=== PATIENT | female | born 1995 | race Caucasian/White ===

== ENCOUNTER 2021-06-29 19:04 | Emergency (ER) | payer OTHER ==
[2021-06-29 19:45] LABS: Bilirubin Neg (Negative); Blood, Urine Negative (Negative); Clarity Clear (Clear); Glucose, Urine (Dipstick) Normal (Negative); Ketone, Urine 5 mg/dL (Negative); Leukocyte Negative (Negative); Nitrite Negative (Negative); Protein, Urine (Dipstick) Negative (Neg-Trace); Urobilinogen Normal mg/dL (Less than 2)
[2021-06-29 20:07] LABS: #Eosinphils 0.2 10x3/uL (0.0-0.5); #Monocytes 0.5 10x3/uL (0.0-1.1); #Neutrophils 6.8 10x3/uL (1.5-8.4); %Basophils 0.1 % (0.0-2.0); %Eosinophils 1.9 % (0.0-6.0); %Lymphocytes 10.5 % (18.0-47.0); %Monocytes 5.5 % (0.0-10.0); %Neutrophils 81.8 % (40.0-75.0); Hemoglobin 11.3 g/dL (12.0-15.5); Mean Corpuscular HGB CONC 34.7 g/dL (32.0-36.0); Mean Corpuscular Volume 89.6 fl (81.6-98.3); Mean Platelet Volume 10.4 fl (7.4-10.4); Platelet Count 256 10x3/uL (150-450); RBC Distribution Width 13.8 % (11.5-14.5); Red Blood Cell (RBC) Count 3.64 10x6/uL (3.90-5.03); White Blood Cell (WBC) Count 8.4 10x3/uL (3.5-10.5)
[2021-06-29] MEDS ORDERED: Metoclopramide HCl 10 MG/2 ML VIAL ONE (20:07)
[2021-06-29] MEDS ORDERED: diphenhydrAMINE 50 MG/ML VIAL ONE (20:11)
[2021-06-29 20:16] LABS: ALT (SGPT) 10 U/L (8-55); AST (SGOT) 12 U/L (5-34); Albumin 3.8 g/dL (3.5-5.0); Alkaline Phosphatase 54 U/L (40-110); Anion Gap 14 mmol/L (10-20); BUN (Urea Nitrogen) 5 mg/dL (7.0-18.7); Bilirubin, Total 0.3 mg/dL (0.2-1.2); Calc. Creatinine Clearance 0 mL/min (70-130); Calcium 8.7 mg/dL (7.8-10.44); Carbon Dioxide 19 mmol/L (22-29); Chloride 110 mmol/L (98-107); Globulin 2.8 g/dL (2.4-3.5); Glucose 78 mg/dL (70-105); Lipase 24 U/L (8-78); Potassium 3.7 mmol/L (3.5-5.1); Protein, Total 6.6 g/dL (6.0-8.3); Sodium 139 mmol/L (136-145)
== END 2021-06-29 21:35 | disposition home or self-care (01) ==
LOC: CSHERS 19:04
DX: O21.8 Other vomiting complicating pregnancy (principal); O99.012 Anemia complicating pregnancy, second trimester; O26.892 Other specified pregnancy related conditions, second trimester; R10.30 Lower abdominal pain, unspecified; O99.512 Diseases of the respiratory system complicating pregnancy, second trimester; J45.909 Unspecified asthma, uncomplicated; Z3A.18 18 weeks gestation of pregnancy; O21.9 Vomiting of pregnancy, unspecified
CPT/HCPCS: 76815; 80053; 81003; 83690; 85025; 86900; 86901; 96365; 96375; J1200; J2765

== ENCOUNTER 2021-11-12 07:28 | Inpatient (IN) | payer OTHER ==
[2021-11-12] MEDS ORDERED: Ondansetron PF 4 MG/2 ML Vial IVP PRN ×3 (07:42→15:12)
[2021-11-12] MEDS ORDERED: Docusate 100 MG CAP PO PRN (07:42)
[2021-11-12] MEDS ORDERED: Bicitra 30 ML UDCUP PO PRN (07:42)
[2021-11-12] MEDS ORDERED: Famotidine/PF 20 mg/2ml Vial SLOW IVP PRN (07:42)
[2021-11-12] MEDS ORDERED: hydrALAZINE 20 MG/ML VIAL SLOW IVP PRN ×2 (07:42→15:12)
[2021-11-12] MEDS ORDERED: Promethazine HCl 25 MG/ML VIAL IM PRN ×3 (07:42→15:12)
[2021-11-12] MEDS ORDERED: Lactated Ringer's 1,000 ML IV SCH (07:45)
[2021-11-12 08:15] LABS: Hemoglobin 11.3 g/dL (12.0-15.5); Mean Corpuscular Hemoglobin 30.1 pg (27.0-33.0); Mean Corpuscular Volume 88.3 fl (81.6-98.3); Mean Platelet Volume 10.9 fl (7.4-10.4); Platelet Count 250 10x3/uL (150-450); RBC Distribution Width 13.9 % (11.5-14.5); Red Blood Cell (RBC) Count 3.76 10x6/uL (3.90-5.03); White Blood Cell (WBC) Count 6.7 10x3/uL (3.5-10.5)
[2021-11-12 08:36] VITALS: BMI 30.7
[2021-11-12] MEDS ORDERED: CEFAZOLIN 2 GM in Sodium Chloride 0.9% 100 ML IVPB SCH (08:45)
[2021-11-12 08:47] LABS: Syphilis Antibody Nonreactive (Nonreactive); Syphilis Antibody Index 0.05 S/CO (<1.00 Non-Reactive)
[2021-11-12] MEDS ORDERED: Methylergonovine 0.2 MG/ML VIAL IM PRN ×2 (08:59→15:12)
[2021-11-12] MEDS ORDERED: Misoprostol 200 MCG TAB PR PRN ×2 (08:59→15:12)
[2021-11-12] MEDS ORDERED: NS w/ Oxytocin 30 units 500 ML IV SCH ×2 (09:00→15:12)
[2021-11-12 09:02] LABS: Hep B Surf Ag Non-Reactive S/CO (NonReactive)
[2021-11-12 09:04] LABS: HBSAg Index 0.28 S/CO (0-0.99)
[2021-11-12 09:23] LABS: HIV (1/2) Antibody/Antigen Non-Reactive (NonReactive)
[2021-11-12] MEDS ORDERED: Dexamethasone 4 mg/ml Vial ONE (09:28)
[2021-11-12] MEDS ORDERED: Ondansetron PF 4 MG/2 ML Vial ONE (09:28)
[2021-11-12] MEDS ORDERED: Phenylephrine 40 MG/NS 250 ML 250 ML ONE (09:28)
[2021-11-12] MEDS ORDERED: Metoclopramide HCl 10 MG/2 ML VIAL ONE (09:28)
[2021-11-12] MEDS ORDERED: Ketorolac Tromethamine 30 MG/ML VIAL ONE (09:28)
[2021-11-12] MEDS ORDERED: Oxytocin 10 UNITS/ML VIAL ONE (09:28)
[2021-11-12] MEDS ORDERED: Fentanyl 100 MCG/2 ML VIAL ONE (09:32)
[2021-11-12] MEDS ORDERED: Morphine PF 10 MG/10 ML VIAL ONE (09:32)
[2021-11-12] MEDS ORDERED: ePHEDrine Sulfate 50 MG/10 ML VIAL ONE (10:13)
[2021-11-12] MEDS ORDERED: Glycopyrrolate 0.2 MG/ML 5 ML SYRINGE ONE (10:14)
[2021-11-12 10:17] LABS: SARS-CoV-2 NAA Rapid Test Not Detected (NotDetected)
[2021-11-12] MEDS ORDERED: Albuterol Sulfate HFA (OR ONLY) ONE (10:30)
[2021-11-12] MEDS ORDERED: Moisturizing Cream (Eucerin) 113 GM JAR TOP PRN (11:59)
[2021-11-12] MEDS ORDERED: diphenhydrAMINE 50 MG/ML VIAL IVP PRN (11:59)
[2021-11-12] MEDS ORDERED: Ondansetron HCl/PF 4 MG/2 ML Vial IVP PRN (11:59)
[2021-11-12] MEDS ORDERED: Promethazine HCl 25 MG SUPP PR PRN (11:59)
[2021-11-12] MEDS ORDERED: Naloxone HCl 0.4 mg/ml Vial IVP PRN ×2 (11:59)
[2021-11-12] MEDS ORDERED: Meperidine HCl/PF 25 MG/ML VIAL SLOW IVP PRN (11:59)
[2021-11-12] MEDS ORDERED: Fentanyl 100 MCG/2 ML VIAL SLOW IVP PRN (11:59)
[2021-11-12] MEDS ORDERED: Naloxone HCl 0.4 mg/ml Vial IV PRN (11:59)
[2021-11-12] MEDS ORDERED: Communication Order-Pharmacy FS SCH (12:00)
[2021-11-12] MEDS ORDERED: Simethicone Chewable 80 MG TAB PO PRN (15:12)
[2021-11-12] MEDS ORDERED: diphenhydrAMINE 25 MG CAP PO PRN (15:12)
[2021-11-12] MEDS ORDERED: Boostrix 0.5 ML (Tdap) VIAL IM ONE (15:12)
[2021-11-12] MEDS ORDERED: Acetaminophen 325 MG TAB PO PRN (15:12)
[2021-11-12] MEDS ORDERED: Bisacodyl 10 MG SUPP PR PRN (15:12)
[2021-11-12] MEDS: Lactated Ringer's 1,000 ML IV SCH (16:35)
[2021-11-12] MEDS ORDERED: Ketorolac Tromethamine 30 MG/ML VIAL IVP PRN (17:30)
[2021-11-13] MEDS: Docusate 100 MG CAP PO SCH ×3 (01:41→21:22)
[2021-11-13] MEDS: Ferrous Sulfate 325 MG TAB PO SCH ×3 (01:41→21:22)
[2021-11-13] MEDS: Lactated Ringer's 1,000 ML IV SCH ×3 (01:42→15:24)
[2021-11-13 04:48] LABS: Mean Corpuscular HGB CONC 33.2 g/dL (32.0-36.0); Mean Corpuscular Hemoglobin 29.9 pg (27.0-33.0); Mean Corpuscular Volume 89.9 fl (81.6-98.3); Platelet Count 212 10x3/uL (150-450); Red Blood Cell (RBC) Count 2.68 10x6/uL (3.90-5.03); White Blood Cell (WBC) Count 8.2 10x3/uL (3.5-10.5)
[2021-11-13] MEDS: Prenatal Vitamin 1 TAB PO SCH (08:52)
[2021-11-13] MEDS ORDERED: Ibuprofen 800 MG TAB PO SCH (14:00)
[2021-11-13] MEDS: Ibuprofen 800 MG TAB PO SCH ×2 (15:26→21:22)
[2021-11-13] MEDS: HYDROcodone/Acetaminophen 5/325 mg Tablet PO PRN ×2 (16:20→21:22)
[2021-11-14] MEDS: Lactated Ringer's 1,000 ML IV SCH ×2 (01:20→08:24)
[2021-11-14 04:51] LABS: Hemoglobin 7.9 g/dL (12.0-15.5); Mean Corpuscular HGB CONC 32.6 g/dL (32.0-36.0); Mean Corpuscular Hemoglobin 29.6 pg (27.0-33.0); Mean Corpuscular Volume 90.6 fl (81.6-98.3); Mean Platelet Volume 10.7 fl (7.4-10.4); Platelet Count 224 10x3/uL (150-450); RBC Distribution Width 14.3 % (11.5-14.5); Red Blood Cell (RBC) Count 2.67 10x6/uL (3.90-5.03); White Blood Cell (WBC) Count 8.1 10x3/uL (3.5-10.5)
[2021-11-14] MEDS: HYDROcodone/Acetaminophen 5/325 mg Tablet PO PRN (06:01)
[2021-11-14] MEDS: Ibuprofen 800 MG TAB PO SCH (06:01)
[2021-11-14 08:24] VITALS: BP 95/59; TEMP 97.9
[2021-11-14] MEDS: Ferrous Sulfate 325 MG TAB PO SCH (09:12)
[2021-11-14] MEDS: Docusate 100 MG CAP PO SCH (09:12)
[2021-11-14] MEDS: Prenatal Vitamin 1 TAB PO SCH (09:12)
== END 2021-11-14 12:25 | disposition home or self-care (01) | DRG 787 ==
LOC: CSHLD 07:28 → CSHPP 15:11
PROVIDERS: ADMIT Obstetrics & Gynecology; ATTEND Obstetrics & Gynecology
PROC: 10D00Z1 Extraction of Products of Conception, Low, Open Approach (ICD-10-PCS; principal; 2021-11-12)
DX: O34.211 Maternal care for low transverse scar from previous cesarean delivery (principal); O72.2 Delayed and secondary postpartum hemorrhage; D62 Acute posthemorrhagic anemia; Z20.822 Contact with and (suspected) exposure to COVID-19; Z37.0 Single live birth; Z3A.37 37 weeks gestation of pregnancy; F41.9 Anxiety disorder, unspecified; F31.9 Bipolar disorder, unspecified; J45.909 Unspecified asthma, uncomplicated; O99.344 Other mental disorders complicating childbirth; O99.52 Diseases of the respiratory system complicating childbirth; F79 Unspecified intellectual disabilities; Z79.899 Other long term (current) drug therapy; N73.6 Female pelvic peritoneal adhesions (postinfective); O99.892 Other specified diseases and conditions complicating childbirth; O90.81 Anemia of the puerperium
CPT/HCPCS: 36415; 51702; 85027; 86780; 86850; 86900; 86901; 87340; 87389; J1100; J1885; J2274; J2310; J2405; J2590; J2765; J3010; J7120; U0002

== ENCOUNTER 2023-12-11 09:21 | Inpatient (IN) | payer OTHER ==
[2023-12-08 13:50] LABS: Hematocrit 30.8 % (34.9-44.5); Hemoglobin 10.6 g/dL (12.0-15.5)
[2023-12-08 14:22] LABS: Syphilis Antibody Nonreactive (Nonreactive); Syphilis Antibody Index 0.03 S/CO (<1.00 Non-Reactive)
[2023-12-08 14:23] LABS: HBsAg Index 0.19 S/CO (0-0.99); Hep B Surf Ag Non-Reactive S/CO (NonReactive)
[2023-12-08 15:17] LABS: Platelet Count 216 10x3/uL (150-450)
[2023-12-11 09:41] VITALS: BMI 39.6
[2023-12-11] MEDS ORDERED: Ondansetron PF 4 MG/2 ML Vial IVP PRN ×3 (10:39→10:42)
[2023-12-11] MEDS ORDERED: Oxytocin 30 units/NS 500 ML 500 ML IV SCH (10:39)
[2023-12-11] MEDS ORDERED: hydrALAZINE 20 MG/ML VIAL SLOW IVP PRN ×2 (10:39→17:37)
[2023-12-11] MEDS ORDERED: Lactated Ringer's 1,000 ML IV SCH (10:39)
[2023-12-11] MEDS ORDERED: Famotidine/PF 20 mg/2ml Vial SLOW IVP PRN (10:39)
[2023-12-11] MEDS ORDERED: Bicitra 30 ML UDCUP PO PRN (10:39)
[2023-12-11] MEDS ORDERED: CEFAZOLIN 2 GM in Sodium Chloride 0.9% 100 ML IVPB SCH (10:39)
[2023-12-11] MEDS ORDERED: Promethazine HCl 25 MG/ML VIAL IM PRN ×2 (10:39→10:42)
[2023-12-11] MEDS ORDERED: Naloxone HCl 0.4 mg/ml Vial IVP PRN ×2 (10:42)
[2023-12-11] MEDS ORDERED: Meperidine HCl/PF 25 MG (1 mL) VIAL SLOW IVP PRN (10:42)
[2023-12-11] MEDS ORDERED: fentaNYL 50 mcg/mL 1 mL Vial SLOW IVP PRN (10:42)
[2023-12-11] MEDS ORDERED: Moisturizing Cream (Eucerin) 113 GM JAR TOP PRN (10:42)
[2023-12-11] MEDS ORDERED: Naloxone HCl 0.4 mg/ml Vial IV PRN (10:42)
[2023-12-11] MEDS ORDERED: HYDROmorphone 0.5 MG/0.5 ML SYRINGE SLOW IVP PRN (10:42)
[2023-12-11] MEDS ORDERED: Ketorolac Tromethamine 30 MG (1 mL) VIAL IVP PRN (10:42)
[2023-12-11] MEDS ORDERED: diphenhydrAMINE 50 MG/ML VIAL IVP PRN (10:42)
[2023-12-11] MEDS ORDERED: Communication Order-Pharmacy FS SCH (10:45)
[2023-12-11] MEDS ORDERED: Ketorolac Tromethamine 30 MG (1 mL) VIAL IVP SCH (10:45)
[2023-12-11 12:09] LABS: Amphetamine Not Detected (NotDetected); Barbiturates Screen Not Detected (NotDetected); Benzodiazepine Screen Not Detected (NotDetected); Cocaine Metabolite Screen Not Detected (NotDetected); Methadone Not Detected (NotDetected); Methamphetamine Not Detected (NotDetected); Opiate Screen Not Detected (NotDetected); Oxycodone Screen Not Detected (NotDetected); Phencyclidine (PCP) Not Detected (NotDetected); THC/Cannabinoid Screen Not Detected (NotDetected); Tricyclic Screen Not Detected (NotDetected)
[2023-12-11] MEDS ORDERED: Bisacodyl 10 MG SUPP PR PRN (17:37)
[2023-12-11] MEDS ORDERED: Simethicone Chewable 80 MG TAB PO PRN (17:37)
[2023-12-11] MEDS: Morphine PF 10 MG/10 ML VIAL ONE (17:43)
[2023-12-11] MEDS: Ondansetron PF 4 MG/2 ML Vial ONE (17:44)
[2023-12-11] MEDS: Oxytocin 10 UNITS/ML VIAL ONE (17:44)
[2023-12-11] MEDS: Dexamethasone 10 MG/ML VIAL ONE (17:44)
[2023-12-11] MEDS: PHENYLEPHRINE-NS 100 MCG/ML 10 ML SYRINGE ONE (17:44)
[2023-12-11] MEDS: Midazolam HCl 2 mg/2 ml Vial ONE (17:45)
[2023-12-11] MEDS: Ferrous Sulfate 325 MG TAB PO SCH (19:35)
[2023-12-11] MEDS: Docusate 100 MG CAP PO SCH (20:56)
[2023-12-11] MEDS: Ketorolac Tromethamine 30 MG (1 mL) VIAL IVP SCH (20:56)
[2023-12-11] MEDS: Ibuprofen 800 MG TAB PO SCH (21:06)
[2023-12-11] MEDS ORDERED: HYDROcodone/Acetaminophen 5/325 mg Tablet PO PRN (22:45)
[2023-12-12 06:04] LABS: Hematocrit 28.1 % (34.9-44.5); Hemoglobin 9.5 g/dL (12.0-15.5); Mean Corpuscular HGB CONC 33.8 g/dL (32.0-36.0); Mean Corpuscular Hemoglobin 28.1 pg (27.0-33.0); Mean Corpuscular Volume 83.1 fL (81.6-98.3); Mean Platelet Volume 11.9 fL (7.4-10.4); Platelet Count 236 10x3/uL (150-450); RBC Distribution Width 14.2 % (11.5-14.5); Red Blood Cell (RBC) Count 3.38 10x6/uL (3.90-5.03); White Blood Cell (WBC) Count 11.5 10x3/uL (3.5-10.5)
[2023-12-12] MEDS: Boostrix 0.5 ML (Tdap) VIAL (>/=7 yrs of age) IM ONE (07:08)
[2023-12-12] MEDS: HYDROcodone/Acetaminophen 5/325 mg Tablet PO PRN (08:05)
[2023-12-12] MEDS: Prenatal Vitamin 1 TAB PO SCH (08:05)
[2023-12-12] MEDS: Ibuprofen 800 MG TAB PO SCH (14:06)
[2023-12-12] MEDS ORDERED: Ibuprofen 800 MG TAB PO PRN (21:00)
[2023-12-13 07:45] VITALS: BP 113/75; TEMP 97.9
== END 2023-12-13 11:20 | disposition home or self-care (01) | DRG 785 ==
LOC: CSHLD 09:21 → CSHPED 16:45
PROVIDERS: ADMIT Obstetrics & Gynecology; ATTEND Obstetrics & Gynecology
PROC: 10D00Z0 Extraction of Products of Conception, High, Open Approach (ICD-10-PCS; principal; 2023-12-11)
PROC: 0UB70ZZ Excision of Bilateral Fallopian Tubes, Open Approach (ICD-10-PCS; 2023-12-11)
DX: O34.211 Maternal care for low transverse scar from previous cesarean delivery (principal); Z3A.37 37 weeks gestation of pregnancy; Z37.0 Single live birth; Z30.2 Encounter for sterilization; O99.892 Other specified diseases and conditions complicating childbirth; N73.6 Female pelvic peritoneal adhesions (postinfective); O99.02 Anemia complicating childbirth
CPT/HCPCS: 36415; 51702; 80306; 85014; 85018; 85027; 85049; 86780; 86850; 86900; 86901; 87340; 88302; J1100; J1885; J2250; J2274; J2405; J2590